=== PATIENT | female | born 1990 | race Caucasian/White ===

== ENCOUNTER 2017-07-10 12:17 | Day surgery (SDC) | payer OTHER ==
[~2017-07-10] VITALS: Ht 160 cm; Wt 87.9 kg
[2017-07-10 12:51] VITALS: Ht 160 cm; Wt 87.9 kg
[2017-07-10 13:03] VITALS: BP 141/88; PULSE 83; RESP 12
[2017-07-10] MEDS ORDERED: LIDOCAINE 2% (SDV) 5 ML INJ ONE (14:07)
[2017-07-10] MEDS ORDERED: PROPOFOL 20 ML ONE (14:07)
[2017-07-10] MEDS ORDERED: MIDAZOLAM 1 MG/ML 2 ML INJ ONE (14:07)
--- NOTE | 2017-07-10 16:17 | OPPN ---
Date/Time of Note Date/Time of Note DATE: 07/10/17 TIME: 16:12 Proc Note GI Procedure Date 07/10/17 Pre-procedure Diagnosis * Abdominal pain Post-procedure Diagnosis Assessment: * Mild gastritis. Rule out H. pylori infection. Biopsies obtained * Normal duodenum. Rule out celiac disease. Biopsies obtained * Otherwise normal EGD. Plan: * Protonix 40 mg daily * Review pathology as soon as available Procedure Performed: Endoscopy (With biopsies) Surgeon JOON SHELBY MD Traveling Buyer none Anesthesia Type: MAC Anesthesiologist: LONNY CHILDS MD Tourniquet Time none EBL none Transfusion required none Biopsy 1: Duodenum/rule out celiac disease Biopsy 2: Gastric body and antrum/rule out H. pylori Grafts/Implants none Tubes/Drains none Complication(s) none Pt Condition post procedure: stable Disposition: home Indications: other (Abdominal pain) Procedure Description Preoperative Diagnosis: After informed consent, with the patient/relatives understanding the procedure, its indications, potential risks and complications, including but not limited to : allergic reaction, bleeding, perforation or infection, and after all pertinent questions were answered to the patients satisfaction, the patient/ relatives signed witnessed informed consent. Following this, premedication was administered slowly IV push under careful cardiovascular and respiratory monitoring with pulse oximetry, automatic blood pressure, and athletic monitor. Once the sedative effect was achieved the patient was place in the left lateral decubitus, the panendoscope was introduced and advanced under visual control. Careful examination of the upper gastrointestinal tract, both on insertion as well as withdrawal of the instrument disclosing the following findings: ESOPHAGUS: the mucosa of the entire esophagus was carefully examined and showed the following findings: the mucosa appears within normal limits. There is no evidence of esophagitis, varices, neoplasm, or stricture. No Hiatal Hernia identified. STOMACH: Upon entrance to the stomach air was insufflated, the gastric guerrero distended normally. The mucosa of the fundus, body and antrum of the stomach was carefully examined both head-on and on retroflexion, and showed the following findings: There is mild erythema of the mucosa of the body and antrum of the stomach. Biopsies were obtained to rule out H. pylori infection. Otherwise the mucosa appears within normal limits with no abnormalities. There is no evidence of ulcers or neoplasm. PYLORUS: The pylorus was carefully examined and showed the following findings: the pylorus appears patent and within normal limits, with no evidence of gastric outlet obstruction. DUODENUM: The duodenal mucosa was carefully examined in the duodenal bulb as well as the second portion of the duodenum and showed the following findings: the mucosa appears unremarkable with no evidence of duodenitis, ulcer or neoplasm. Random biopsies were obtained of the second portion of the duodenum to rule out celiac disease JOON SHELBY MD Jul 10, 2017 16:17
[2017-07-10 16:50] VITALS: BP 119/71; PULSE 70; RESP 18
== END 2017-07-10 17:00 | disposition home or self-care (01) ==
LOC: GIL 12:17
PROVIDERS: ATTEND Internal Medicine Gastroenterology
DX: K29.50 Unspecified chronic gastritis without bleeding (principal); E66.9 Obesity, unspecified; Z68.34 Body mass index [BMI] 34.0-34.9, adult
CPT/HCPCS: 43239; 84703; 88305; 88312; J2250; Z7610